=== PATIENT | male | born 1965 | race Caucasian/White ===

== ENCOUNTER → 2020-07-28 14:27 | Outpatient (CLI) | payer MEDICAID ==
[2020-07-28 15:03] LABS: BASOPHILS 0.1 % (0-2); EOSINOPHILS 0.1 % (0-7); HEMATOCRIT 48.6 % (42.0-54.0); HEMOGLOBIN 16.7 g/dL (13.5-17.5); LYMPHOCYTE ABS# 1.75 10x3/uL (1.32-3.57); LYMPHOCYTES 18.4 % (15-50); MCHC 34.4 g/dL (31.0-37.0); MCV 93.1 fL (80.0-100.0); MEAN PLATELET VOLUME 9.4 fL (7.4-10.4); NEUTROPHIL ABS# 6.61 10x3/uL (1.78-5.38); NEUTROPHILS 69.4 % (40-80); PLATELET COUNT 236 10x3/uL (130-400); RBC 5.22 10x6/uL (4.20-6.10); RDW 13.2 % (11.5-14.5); WBC 9.5 10x3/uL (4.8-10.8)
[2020-07-28 15:08] LABS: INR 0.99 (0.85-1.17); PROTIME 12.1 SECONDS (11.6-15.0)
[2020-07-28 15:13] LABS: CALCIUM 9.7 mg/dL (8.5-10.1); CARBON DIOXIDE 27.3 mmol/L (21.0-32.0); CREATININE - SERUM 1.5 mg/dL (0.6-1.3); POTASSIUM - SERUM 4.3 mmol/L (3.5-5.1)
[2020-07-28 15:18] LABS: UDS - AMPHET NEGATIVE QUAL (NEGATIVE); UDS - BARB NEGATIVE QUAL (NEGATIVE); UDS - BENZO NEGATIVE QUAL (NEGATIVE); UDS - COCAINE NEGATIVE QUAL (NEGATIVE); UDS - OPIATE NEGATIVE QUAL (NEGATIVE); UDS - PCP NEGATIVE QUAL (NEGATIVE); UDS - THC NEGATIVE QUAL (NEGATIVE)
== END | disposition home or self-care (01) ==
LOC: D.LAB 14:27
PROVIDERS: ATTEND Specialist
DX: Z01.812 Encounter for preprocedural laboratory examination (principal); I10 Essential (primary) hypertension; Z79.01 Long term (current) use of anticoagulants

== ENCOUNTER → 2020-10-15 14:12 | Outpatient (CLI) | payer MEDICAID ==
[2020-10-15 14:38] LABS: CREATININE - SERUM 1.5 mg/dL (0.6-1.3)
== END | disposition home or self-care (01) ==
LOC: D.LAB 14:12
PROVIDERS: ATTEND Specialist
DX: T14.90XA Injury, unspecified, initial encounter (principal)